=== PATIENT | male | born 1990 ===

== ENCOUNTER 2017-10-14 01:35 | Emergency (ER) | payer SELFPAY ==
[2017-10-14 01:45] VITALS: RESP 20; TEMP 98.3
--- NOTE | 2017-10-14 02:33 | C.PDOC ---
History Of Present Illness 27 year old male presents to the ED c/o frontal headache for the past 4 days. Patient is describes as frontal and pressure like. Patient states he has PMHx of HTN but he is non compliant with medications. Patient checked his BP at home today and it was 147/110. Patient decided to come to the ED for evaluation today , took an unknown BP pill and Tylenol with no relief. Patient denies fever, chill, nausea, vomit, diarrhea, dizziness, weakness, numbness. Time Seen by Provider: 10/14/17 01:45 Chief Complaint (Nursing): High Blood Pressure History Per: Patient History/Exam Limitations: no limitations Onset/Duration Of Symptoms: Days (4) Current Symptoms Are (Timing): Still Present Associated Symptoms: Headache Exacerbating Factor(s): Pos: Recently Missed Doses Of Medication Recent travel outside of the [place]: No Additional History Per: Patient Past Medical History Reviewed: Historical Data, Nursing Documentation, Vital Signs Vital Signs: Last Vital Signs Temp 98.3 F 10/14/17 01:42 Pulse 89 10/14/17 01:42 Resp 20 10/14/17 01:42 BP 143/84 10/14/17 01:42 Pulse Ox 98 10/14/17 02:35 - Medical History PMH: No Chronic Diseases Surgical History: No Surg Hx Family History: States: Unknown Family Hx - Social History Hx Alcohol Use: Yes Hx Substance Use: No - Immunization History Hx Tetanus Toxoid Vaccination: No Hx Influenza Vaccination: No Hx Pneumococcal Vaccination: No Review Of Systems Constitutional: Negative for: Fever, Chills Eyes: Negative for: Vision Change Cardiovascular: Negative for: Chest Pain, Palpitations Respiratory: Negative for: Shortness of Breath Gastrointestinal: Negative for: Nausea, Vomiting Musculoskeletal: Negative for: Back Pain Neurological: Positive for: Headache. Negative for: Weakness, Numbness, Dizziness Physical Exam - Physical Exam Appears: Non-toxic, No Acute Distress Skin: Normal Color, Warm, Dry Head: Atraumatic, Normacephalic Eye(s): bilateral: Normal Inspection, PERRL, EOMI Oral Mucosa: Moist Neck: Normal ROM, Supple Chest: Symmetrical Cardiovascular: Rhythm Regular Respiratory: Normal Breath Sounds, No Rales, No Rhonchi, No Wheezing Gastrointestinal/Abdominal: Soft, No Tenderness, No Guarding, No Rebound Extremity: Normal ROM, No Tenderness, No Swelling Neurological/Psych: Oriented x3, Normal Speech, Normal Motor, Normal Sensation Gait: Steady ED Course And Treatment O2 Sat by Pulse Oximetry: 98 (ON RA) Pulse Ox Interpretation: Normal Progress Note: Pt refused toradol IM. Motrin 800 mg PO ordered. On reeval, pt appears well, using phone- reports improved headache. VSS in no distress. Pt advised to follwo up in clinic. 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 - Scribe Statement The provider has reviewed the documentation as recorded by the Scribe Harsha Monae All medical record entries made by the Scribe were at my direction and personally dictated by me. I have reviewed the chart and agree that the record accurately reflects my personal performance of the history, physical exam, medical decision making, and the department course for this patient. I have also personally directed, reviewed, and agree with the discharge instructions and disposition.
[2017-10-14 03:37] VITALS: BP 122/65; PULSE 66; O2SAT 100
== END 2017-10-14 03:36 | disposition home or self-care (01) ==
LOC: C.ER 01:35
DX: R51 Headache (principal)